=== PATIENT | female | born 1990 | race Caucasian/White ===

== ENCOUNTER 2020-01-29 23:32 | Outpatient (CLI) | payer OTHER ==
[~2020-01-29] VITALS: Ht 162.6 cm; Wt 84.1 kg
[2020-01-29 23:40] VITALS: BP 124/72
[2020-01-30] MEDS ORDERED: MEPERIDINE/PF 25MG/0.5ML IVPush PRN (01:00)
[2020-01-30] MEDS ORDERED: PROMETHAZINE 25 MG/ML, 1ML IM ONE (01:00)
[2020-01-30] MEDS ORDERED: MEPERIDINE/PF 100 MG/ML ONE (01:01)
[2020-01-30] MEDS ORDERED: PROMETHAZINE 25 MG/ML, 1ML ONE (01:05)
[2020-01-31] MEDS ORDERED: PREN1TAB60 PO (06:12)
== END 2020-01-30 01:25 | disposition home or self-care (01) ==
LOC: LDOP 23:32
PROVIDERS: ATTEND Student in an Organized Health Care Education/Training Program
DX: O62.9 Abnormality of forces of labor, unspecified (principal); Z3A.39 39 weeks gestation of pregnancy
CPT/HCPCS: 59025; 96372; 96374; 99201; J2175; J2550; G0463

== ENCOUNTER 2020-01-30 22:04 | Outpatient (CLI) | payer OTHER ==
[~2020-01-30] VITALS: Ht 162.6 cm; Wt 84.0 kg
[2020-01-30 22:08] VITALS: BP 110/78
[2020-01-30] MEDS ORDERED: PROMETHAZINE 25 MG/ML, 1ML ONE (23:34)
[2020-01-30] MEDS ORDERED: MEPERIDINE/PF 100 MG/ML ONE (23:34)
[2020-01-31] MEDS ORDERED: PROMETHAZINE 25 MG/ML, 1ML IM ONE
[2020-01-31] MEDS ORDERED: MEPERIDINE/PF 50 MG/ML IM PRN
[2020-01-31] MEDS ORDERED: PREN1TAB60 PO (06:12)
== END 2020-01-30 23:50 | disposition home or self-care (01) ==
LOC: LDOP 22:04
PROVIDERS: ATTEND Student in an Organized Health Care Education/Training Program
DX: O62.9 Abnormality of forces of labor, unspecified (principal); Z3A.39 39 weeks gestation of pregnancy
CPT/HCPCS: 59025; 96372; 99211; J2175; J2550; G0463

== ENCOUNTER 2020-01-31 04:08 | Inpatient (IN) | payer OTHER ==
[~2020-01-31] VITALS: Ht 162.6 cm; Wt 84.0 kg
[2020-01-31] MEDS ORDERED: LACTATED RINGERS 1,000 ML IV SCH ×2 (04:49→07:27)
[2020-01-31] MEDS ORDERED: OXYTOCIN 30U/ 0.9% NaCL 500ML 500 ML IV PRN (04:49)
[2020-01-31] MEDS: D5%-LACTATED RINGERS 1,000 ML IV SCH ×2 (04:49→20:15)
[2020-01-31] MEDS ORDERED: OXYTOCIN 30U/ 0.9% NaCL 500ML 500 ML IV ONE (04:49)
[2020-01-31] MEDS ORDERED: FENTANYL PF 100 MCG/2ML ONE ×2 (04:56→06:51)
[2020-01-31] MEDS ORDERED: TERBUTALINE 1 MG/ML, 1ML SQ PRN (05:00)
[2020-01-31] MEDS ORDERED: FENTANYL PF 100 MCG/2ML IV PRN (05:00)
[2020-01-31] MEDS ORDERED: SODIUM CITRATE/CITRIC ACID 30 ML UDC PO PRN (05:00)
[2020-01-31] MEDS ORDERED: METOCLOPRAMIDE 5 MG/ML, 2ML IVPush PRN (05:00)
[2020-01-31] MEDS ORDERED: CALCIUM CARBONATE 500 MG TAB.CHEW PO PRN (05:00)
[2020-01-31] MEDS ORDERED: VANCOMYCIN 2,000 MG in SODIUM CHLORIDE 0.9% 500 ML IV ONE (05:00)
[2020-01-31] MEDS ORDERED: ONDANSETRON 2MG/ML, 2ML IVPush PRN ×2 (05:00→07:30)
[2020-01-31] MEDS ORDERED: TERBUTALINE 1 MG/ML, 1ML IVPush PRN (05:00)
[2020-01-31] MEDS: FENTANYL PF 100 MCG/2ML IVPush PRN ×2 (05:24→06:59)
[2020-01-31 05:34] LABS: BASOPHILS # (AUTO) 0.08 x10^3/uL (0-0.1); BASOPHILS % (AUTO) 1 % (0-1); EOSINOPHILS # (AUTO) 0.01 x10^3/uL (0-0.4); EOSINOPHILS % (AUTO) 0 % (1-7); LYMPHOCYTES # (AUTO) 0.97 x10^3/uL (1-3.4); LYMPHOCYTES % (AUTO) 7 % (22-44); MD NO; MEAN CORPUSCULAR HEMOGLOBIN 30.2 pg (27.0-34.8); MEAN CORPUSCULAR HGB CONC 33.7 g/dL (32.4-35.8); MEAN CORPUSCULAR VOLUME 89.4 fL (80-100); MEAN PLATELET VOLUME 10.4 fL (7.4-10.4); MONOCYTES # (AUTO) 0.66 x10^3/uL (0.2-0.8); MONOCYTES % (AUTO) 5 % (2-9); NEUTROPHILS # (AUTO) 11.66 x10^3/uL (1.8-6.8); NEUTROPHILS % (AUTO) 87 % (42-75); PLATELET COUNT 197 x10^3/uL (130-400); RED CELL DISTRIBUTION WIDTH 13.1 % (9.6-15.2)
[2020-01-31] MEDS ORDERED: LIDOCAINE 1%, 20ML ONE (05:47)
[2020-01-31] MEDS ORDERED: NEWBORN KIT ONE (05:47)
[2020-01-31] MEDS ORDERED: MISOPROSTOL 200 MCG TABLET ONE ×2 (05:47→22:31)
[2020-01-31] MEDS ORDERED: OXYTOCIN 30U/ 0.9% NaCL 500ML 500 ML ONE ×2 (05:47→08:13)
[2020-01-31] MEDS ORDERED: FENTANYL/BUPIV./NS/PF 250 ML EPIDCONT SCH ×2 (05:58→07:27)
[2020-01-31 05:59] VITALS: BP 114/73
[2020-01-31] MEDS ORDERED: PREN1TAB60 PO (06:12)
[2020-01-31] MEDS ORDERED: MISOPROSTOL 25 MCG TABLET ONE (06:51)
[2020-01-31] MEDS ORDERED: FENTANYL/BUPIV./NS/PF 250 ML EPIDCONT ONE (07:08)
[2020-01-31] MEDS ORDERED: BUPIVACAINE 0.25% ONE (07:09)
[2020-01-31] MEDS ORDERED: DIPHENHYDRAMINE 50 MG/ML, 1ML IVPush PRN (07:30)
[2020-01-31] MEDS ORDERED: LACTATED RINGERS 1,000 ML IVBOLUS PRN (07:30)
[2020-01-31] MEDS ORDERED: EPHEDRINE 50 MG/ML, 1ML IVPush PRN (07:30)
[2020-01-31] MEDS ORDERED: NALOXONE 0.4 MG/ML, 1ML IVPush PRN (07:30)
[2020-01-31] MEDS ORDERED: ONDANSETRON 2MG/ML, 2ML ONE (11:16)
[2020-01-31] MEDS ORDERED: ACETAMINOPHEN 325 MG TABLET ONE ×2 (14:54→15:44)
[2020-01-31] MEDS ORDERED: GENTAMICIN PER PHARMACY MC PRN (15:00)
[2020-01-31] MEDS ORDERED: PHARMACOKINETIC MONITORING MC PRN (15:30)
[2020-01-31] MEDS ORDERED: PHARMACOKINETIC CONSULTATION MC ONE (15:30)
[2020-01-31] MEDS ORDERED: ACETAMINOPHEN 325 MG TABLET PO PRN (15:30)
[2020-01-31] MEDS ORDERED: ACETAMINOPHEN 500 MG TABLET PO ONE (16:00)
[2020-01-31] MEDS ORDERED: VANCOMYCIN PMX 1GM/200ML 200 ML IVPB SCH (17:00)
[2020-01-31] MEDS: GENTAMICIN 140 MG in SODIUM CHLORIDE 0.9% 50 ML IV SCH (17:54)
[2020-01-31] MEDS ORDERED: ACETAMINOPHEN 500 MG TABLET ONE (18:51)
[2020-01-31 19:08] VITALS: BP 103/61
[2020-02-01] MEDS ORDERED: OXYTOCIN 30U/ 0.9% NaCL 500ML 500 ML IV SCH (00:16)
[2020-02-01] MEDS ORDERED: ONDANSETRON 2MG/ML, 2ML IV PRN (00:30)
[2020-02-01] MEDS ORDERED: OXYcodone IR 5MG TABLET PO PRN (00:30)
[2020-02-01] MEDS ORDERED: ACETAMINOPHEN 325 MG TABLET PO PRN (00:30)
[2020-02-01] MEDS ORDERED: SIMETHICONE 80 MG CHEW TAB PO PRN (00:30)
[2020-02-01] MEDS ORDERED: MEASLES,MUMPS&RUBELLA VACC/PF 0.5 ML SQ-VACC PRN (00:30)
[2020-02-01] MEDS ORDERED: MISOPROSTOL 200 MCG TABLET PR PRN (00:30)
[2020-02-01] MEDS ORDERED: OXYTOCIN 30U/ 0.9% NaCL 500ML 500 ML ONE (00:32)
[2020-02-01] MEDS: GENTAMICIN 140 MG in SODIUM CHLORIDE 0.9% 50 ML IV SCH ×3 (02:25→17:31)
[2020-02-01] MEDS ORDERED: IBUPROFEN 600 MG TABLET ONE (02:31)
[2020-02-01] MEDS: LACTATED RINGERS 1,000 ML IV SCH ×2 (02:33→10:26)
[2020-02-01] MEDS ORDERED: IBUPROFEN 800 MG TABLET ONE (02:39)
[2020-02-01] MEDS: IBUPROFEN 800 MG TABLET PO PRN ×4 (02:44→23:27)
[2020-02-01 03:40] VITALS: BP 90/56
[2020-02-01] MEDS ORDERED: VANCOMYCIN PMX 1GM/200ML 200 ML IV SCH ×2 (05:30→06:30)
[2020-02-01 05:59] LABS: CREATININE 1.06 mg/dL (0.55-1.02)
[2020-02-01 09:00] VITALS: BP 100/67
[2020-02-01] MEDS: DOCUSATE 100 MG CAPSULE PO PRN ×2 (10:22→19:18)
[2020-02-01] MEDS: PRENATAL VIT/IRON/FA 1 EACH TABLET PO SCH (10:22)
[2020-02-01 12:15] VITALS: BP 96/61
[2020-02-01 16:15] VITALS: BP 103/68
[2020-02-01 19:15] VITALS: BP 106/71
[2020-02-01 23:40] VITALS: BP 105/69
[2020-02-02] MEDS: GENTAMICIN 140 MG in SODIUM CHLORIDE 0.9% 50 ML IV SCH (01:51)
[2020-02-02 04:09] VITALS: BP 100/72
[2020-02-02] MEDS: PRENATAL VIT/IRON/FA 1 EACH TABLET PO SCH (09:00)
[2020-02-02] MEDS ORDERED: IBUP-1222 PO (09:03)
[2020-02-02] MEDS ORDERED: OXYC-302 PO (09:03)
[2020-02-02 09:26] VITALS: BP 107/71
[2020-02-02] MEDS: IBUPROFEN 800 MG TABLET PO PRN (10:31)
== END 2020-02-02 11:45 | disposition home or self-care (01) | DRG 805 ==
LOC: LDOP 04:08 → LDIP 04:59 → 2NW 02-01 03:30
PROVIDERS: ADMIT Student in an Organized Health Care Education/Training Program; ATTEND Student in an Organized Health Care Education/Training Program
PROC: 10E0XZZ Delivery of Products of Conception, External Approach (ICD-10-PCS; principal; 2020-02-01)
PROC: 3E0R3BZ Introduction of Anesthetic Agent into Spinal Canal, Percutaneous Approach (ICD-10-PCS; 2020-02-01)
DX: O99.824 Streptococcus B carrier state complicating childbirth (principal); O41.1230 Chorioamnionitis, third trimester, not applicable or unspecified; Z37.0 Single live birth; O62.0 Primary inadequate contractions; O77.0 Labor and delivery complicated by meconium in amniotic fluid; Z88.0 Allergy status to penicillin; Z3A.40 40 weeks gestation of pregnancy; Z88.1 Allergy status to other antibiotic agents; Z80.3 Family history of malignant neoplasm of breast
CPT/HCPCS: 36415; J7121; 80170; 82565; 82803; 84520; 85025; 86592; 86850; 86900; 87635; 88307; G0378; J2405; J3010; J3370; J1580; J2590; J7040; J7120; U0001-CS